=== PATIENT | male | born 2000 | race Caucasian/White ===

== ENCOUNTER 2022-02-08 10:53 | Emergency (ER) | payer OTHER, SELFPAY ==
[2022-02-08 11:06] VITALS: BP 106/50; PULSE 72; RESP 16; TEMP 37.1; O2SAT 98
--- NOTE | 2022-02-08 11:27 | ED.GENADULT ---
HPI - General Adult General Chief complaint: Unspecified Stated complaint: Cough nausea Time Seen by Provider: 02/08/22 11:10 Source: patient Mode of arrival: ambulatory Limitations: no limitations History of Present Illness HPI narrative: Klever is a 21-year-old male patient presenting to the clinic today with complaints of body aches, nausea, and headache that occurred 3 days ago. He reports he woke up this morning and he is feeling very well. He is needing a note for work to return Related Data Home Medications Medication Instructions Recorded Confirmed dexmethylphenidate 30 mg 30 mg PO DAILY 05/12/19 02/08/22 capsule,extended release [id number] (Focalin XR) methylphenidate HCl 5 mg tablet 5 mg PO DAILY 05/12/19 02/08/22 (Ritalin) Allergies Allergy/AdvReac Type Severity Reaction Status Date / Time No Known Allergies Allergy Unknown Verified 02/08/22 11:18 Review of Systems Review of Systems: Pertinent positives per HPI. Patient denies any fever, chills, rash, headache, visual changes, dizziness, cough, runny nose, sore throat, shortness of breath, chest pain, palpitations, nausea, vomiting, diarrhea, constipation, abdominal pain, or any urinary issues. PMFSH Comments At the time of my signature, I reviewed and agree with the nursing past medical, surgical, social, and family history. There is no relevant family history pertinent to the patient complaint. Exam Narrative: General: Well-developed, well nourished, in no apparent distress Head: Normocephalic, atraumatic Eyes: Pupils equally round and reactive to light bilaterally, EOM intact, sclera and conjunctive clear, no discharge, lids normal Ears: TMs intact and clear, ear canals clear, no drainage, grossly hearing normal. Nose: Nares patent, no discharge, no inflammation, no sinus tenderness. Mouth: Oropharynx without lesions or masses, good dentition, MMM. Oropharynx red with tonsillar swelling Neck: Supple, trachea midline, no enlargement of anterior or posterior cervical nodes, no thyroid masses or goiter palpable. Cardio: Regular rate and rhythm, s1 and s2 normal, no murmur appreciated. Resp: Clear to auscultation bilaterally anteriorly and posteriorly, no rhonchi, rales, wheezing or rubs Course Course Emergency Course: Portions of this record may have been created with voice recognition software. Level of Care: Express Care Visit Vital Signs Vital signs: Vital Signs Temperature 37.1 C 02/08/22 11:06 Pulse Rate 72 02/08/22 11:06 Respiratory Rate 16 02/08/22 11:06 Blood Pressure 106/50 L 02/08/22 11:06 Pulse Oximetry 98 02/08/22 11:06 Oxygen Delivery Room Air 02/08/22 11:06 Temperature 37.1 C 02/08/22 11:06 Pulse Rate 72 02/08/22 11:06 Respiratory Rate 16 02/08/22 11:06 Blood Pressure 106/50 L 02/08/22 11:06 Pulse Oximetry 98 02/08/22 11:06 Oxygen Delivery Room Air 02/08/22 11:06 Vital signs reviewed Medical Decision Making MDM Narrative Medical decision making narrative: At the time of visit patient is resting comfortably on the exam table. Strep screen was obtained was negative. Supportive measures were discussed with the patient he voiced understanding of discharge instructions and agrees to treatment plan. Differential Diagnosis Differential Diagnosis: Viral syndrome, pharyngitis, COVID, influenza Vital Signs Vital Signs: Vital Signs Temperature 37.1 C 02/08/22 11:06 Pulse Rate 72 02/08/22 11:06 Respiratory Rate 16 02/08/22 11:06 Blood Pressure 106/50 L 02/08/22 11:06 Pulse Oximetry 98 02/08/22 11:06 Oxygen Delivery Room Air 02/08/22 11:06 Temperature 37.1 C 02/08/22 11:06 Pulse Rate 72 02/08/22 11:06 Respiratory Rate 16 02/08/22 11:06 Blood Pressure 106/50 L 02/08/22 11:06 Pulse Oximetry 98 02/08/22 11:06 Oxygen Delivery Room Air 02/08/22 11:06 Lab Data Labs: Strep Screen Presumptive Negative
== END 2022-02-08 11:48 | disposition home or self-care (01) ==
PROVIDERS: Emergency Provider Nurse Practitioner Family
DX: B34.9 Viral infection, unspecified (principal); F90.9 Attention-deficit hyperactivity disorder, unspecified type
CPT/HCPCS: 87081; 87880; 99213; G0463

== ENCOUNTER 2025-03-20 14:34 | Emergency (ER) | payer OTHER, SELFPAY ==
[2025-03-20 14:45] VITALS: BP 121/67; PULSE 77; RESP 20; TEMP 36.8; O2SAT 100
[2025-03-20 15:04] LABS: EDSTREPNEGPOS1 Negative (Negative)
[2025-03-20 15:08] LABS: EDCOVIDSCREEN Negative (Negative); EDINFLUASCREEN Negative (Negative); EDINFLUBSCREEN Negative (Negative)
--- OUTSIDE RECORDS SUMMARY | 2025-03-20 15:57 | XMS_ITS | Clinical Summary ---
Author Organization [facility] Address [address] [place] [address] Phone Care Team Providers Care Truck Driver Flatbed Name Role Phone Doroteo Flynn MD Primary Care Provider [phone] Allergies No known active allergies Medications Dexmethylphenida te HCl 30 MG CAPSULE SR 24 HR TK ONE C PO QAM 0 07/26/2018 Active guanFACINE (TENEX) 1 MG Tablet 2 07/26/2018 Active ondansetron (ZOFRAN-ODT) 4 MG TABLET DISPERSIBLE Take 1 Tablet by mouth every 6 hours as needed for Nausea - 1st line. 6 Tablet 07/22/2020 Active Active Problems No known active problems Social History Tobacco Use Types Packs/Day Years Used Date Smoking Tobacco: Never Smokeless Tobacco: Never Alcohol Use Standard Drinks/Week Comments Never 0 (1 standard drink = 0.6 oz pur e alcohol) AUDIT-C Answer Date Recorded Frequency of Alcohol Consumption Never 08/11/2018 Average Number of Drinks Not on file 019 Frequency of Binge Drinking Not on file 07/19 Sex and Gender Information Value Date Recorded Sex Assigned at Not on file Legal Sex Male 10:39 PM CDT Gender Identity Not on file Sexual Orientation Not on file Last Filed Vital Signs Vital Sign Reading Time Taken Comments Blood Pressure 98/58 01/22/2021 7:22 PM CDT Pulse 70 01/22/2021 7:22 PM CDT Temperature 36.5 C (97.7 F) 01/22/2021 7:22 PM CDT Respiratory Rate 18 01/22/2021 7:22 PM CDT Oxygen Saturation 97% 01/22/2021 7:22 PM CDT Inhaled Oxygen Concentration - - Weight 54.4 kg (120 lb) 01/22/2021 5:48 PM CDT Height 167.6 cm (5' 6) 01/22/2021 5:48 PM CDT Body Mass Index 19.37 01/22/2021 5:48 PM CDT Plan of Treatment Health Maintenance Due Date Last Done Comments Hepatitis C Virus (HCV) Screening 2001 Human Papillomavirus (HPV) Immunization (3 - Male 2-dose series) 03/04/2014 11/24/2013, 09/01/2013 Meningococcal B Immunization (1 of 2 - Standard) 2017 Influenza Immunization (#1) 2024 03/08/2002, 1 2001 SARS-COV-2 Immunization (3 - season) 2024 12/27/2020, 11/22/2020 Respiratory Syncytial Virus (RSV) Immunization (Adult) (1 - 1-dose 75+ series) 2076 Hepatitis B Immunization Completed 002, 2001, 2001 Pneumococcal Immunization Combined Aged Out 08/31/2002, 03/08/2002, 2001 No longer eligible based on patient's age to complete this topic Measles Mumps Rubella (MMR) Immunization Discontinued 07/15/2006, 08/31/2002 Polio (IPV) Immunization Discontinued 007, 12/20/2002, 2001, Additional history exists Varicella Immunization Completed 07/15/2006, 2002 DTaP/Tdap/Td Immunization Discontinued 2013, 12/20/2002, 2001, Additional history exists Hepatitis A Immunization Discontinued 09/01/2013 TdaP Immunization Completed 09/01/2013 Meningococcal Immunization (ACWY) Completed 01/30/2020, 09/01/2013 Rotavirus Immunization Aged Out No lo nger eligible based on patient's age to complete this topic Insurance MEDICAID [facility] [facility] Care Teams Truck Driver Flatbed Relationship Specialty Start Date End Date Doroteo Flynn MD [address] [place] [address] PCP - General Pediatrics 08/11/18
--- OUTSIDE RECORDS SUMMARY | 2025-03-20 15:57 | XMS_ITS | Clinical Summary ---
Author Organization [facility] Address [address] [place] [address] Phone Care Team Providers Care Windows Security Engineer Name Role Phone Trey Juan MD Primary Care Provider [phone] Allergies No known active allergies Medications benzonatate (TESSALON) 200 mg capsuleIndicat ions:Viral URI with cough Take 1 capsule (200 mg total) by mouth 3 (three) times a day as needed for cough 42 capsule 3 Active Additional Information Patient not taking.Reported on 04/26/2023 albuterol HFA (PROVENTIL HFA,VENTOLIN HFA,PROAIR HFA) 90 mcg/actuation inhalerIndicat ions:Viral URI with cough Inhale 2 puffs every 6 (six) hours as needed for wheezing 1 each 3 Active sertraline (ZOLOFT) 50 mg tablet Take 1 tablet (50 mg total) by mouth daily 90 tablet 1 3 Active naproxen (NAPROSYN) 500 mg tablet Take 1 tablet (500 mg total) by mouth 2 (two) times a day with meals P.r.n. pain and swelling. Collaborating physician Levi Caba MD 30 tablet 3 Active Active Problems Problem Noted Date Diagnosed Date Unable to control anger 04/26/2023 Assessment & Plan (04/26/2023 8:20 AM WELDER MANUFACTURE): Improved while taking sertraline. Encouraged compliance. He is agreeable. Also discussed meeting with our therapist which she is also agreeable. We reviewed red flags. Follow-up in 6 months or sooner for any concerns. Closed displaced fracture of fifth metacarpal bone of right hand 08/13/2022 Gastroenteritis 11/30/2019 Sprain, ribs, initial encounter 02/13/2019 Thoracic myofascial strain 02/13/2019 Irritant contact dermatitis due to plants, excep t food 09/29/2018 Testicular pain, right 04/07/2018 Encounter for routine child health examination without abnormal findings 05/31/2017 Attention deficit hyperactiv ity disorder (ADHD), combined type 11/25/2016 Overview (08/11/2018): Focalin XR 30mg am. 03-10-17 New agreement signed & UDS shows COMPLIANCE. Pt has [place] ins (switching to [place] not effective until 07-18-17) - per Dr. Hayden may continue to fill Focalin until f/u appt 07/26/18. 07/26/18 UDS #2 shows COMPLIANCE Assessment & Plan (04/26/2023 8:20 AM WELDER MANUFACTURE): Reports stable currently. Will continue to monitor. Singers' nodes 11/26/2010 Hoarseness 08/04/2010 Encounters Date Type Department Care Team Description 03/20/2025 Nurse Triage [facility] [address] [place] [address] Trey Juan MD from Last 3 Months Immunizations Immunization Administration Dates Next Due DTaP 07/15/2006, 3,2001,10/03,2001 HPV, Quadrivalent 11/24/2013,09/01/2013 Hep A, Pediatric 09/01/2013 Hep B, Adolescent or Pediatric 03/08/2002,2001,2001 Hib (HbOC) 08/31/2002, 2,2001,08/03 IPV 07/15/2006, 3,2001,10/03,2001 Influenza, Quadrivalent, Spl it, Intramuscular 03/08/2002 Influenza, Unspecified 04/26/2023(Deferr ed: Patient Refused),06/09/2022(Deferred: Patient Refused),12/18/2021(Deferred: Patient Refused) MMR 07/15/2006,08/31/2002 Meningococcal Conjugate (Menveo) 01/30/2020 Meningococcal MCV4P (Menactra) 09/01/2013 Pneumococcal Conjugate 7-Valent 09/01/19 03,06/08/2002,03/08/2002,12/06 Tdap 09/01/2013 Varicella 07/15/2006,12/20/2002 Surgical History Surgery Date Site/Laterality Comments STRABISMUS SURGERY Right Medical History Medical History Date Comments Vocal cord nodule Vocal cord nod ules - (Added by TW Conv) Adhd Adhd ADHD (attention deficit hype ractivity disorder) Anxiety Depression Gastric reflux Family History Medical History Relation Name Comments No Known Problems Brother Alcohol abuse Father Squamous cell carcinoma Maternal Grandfather Diabetes Maternal Grandmother Diabetes Mother Hypertension Mother No Known Problems Sister Relation Name Status Comments Brother Alive Father Alive Maternal Grandfather Alive Maternal Grandmother Alive Mother Alive Sister Alive Social History Tobacco Use Types Packs/Day Years Used Date Smoking Tobacco: Some Days Cigarettes Smokeless Tobacco: Never Tobacco Cessation:Ready to Q uit: Not Asked; Counseling Given: Not Answered Alcohol Use Standard Drinks/Week Comments Not Currently 0 (1 standard drink = 0.6 oz pur e alcohol) AUDIT-C Answer Date Recorded Q1: How often do you have a drink containing alc ohol? 2-3 times a week 04/26/2023 Q2: How many drinks containi ng alcohol do you have on a typical day when you are drinking? 5 or 6 04/26/2023 Q3: How often do you have si x or more drinks on one occasion? Monthly 04/26/2023 PHQ-2 Answer Date Recorded PHQ-2 Total Score (If total score is 3 or more points, staff should administer the PHQ-9) 1 06/09/2022 Personal Safety Answer Date Recorded Have you ever been in or are you currently in a harmful physical or emotional relationship or is someone making you feel afraid or unsafe? Denies 08/13/2022 Sex and Gender Information Value Date Recorded Sex Assigned at Not on file Legal Sex Male 12:33 PM WELDER MANUFACTURE Gender Identity Not on file Sexual Orientation Not on file Last Filed Vital Signs Vital Sign Reading Time Taken Comments Blood Pressure 100/54 04/26/2023 7:48 AM WELDER MANUFACTURE Pulse 70 04/26/2023 7:48 AM WELDER MANUFACTURE Temperature 36.4 C (97.6 F) 04/26/2023 7:48 AM WELDER MANUFACTURE Respiratory Rate 18 04/26/2023 7:48 AM WELDER MANUFACTURE Oxygen Saturation 98% 04/26/2023 7:48 AM WELDER MANUFACTURE Inhaled Oxygen Concentration - - Weight 57.2 kg (126 lb 3.2 oz) 04/26/2023 7:48 A M WELDER MANUFACTURE Height 170.2 cm (5' 7.01) 04/26/2023 7:48 AM CS T Body Mass Index 19.76 04/26/2023 7:48 AM WELDER MANUFACTURE Plan of Treatment Health Maintenance Due Date Last Done Comments Hepatitis C Screening 2001 Pneumococcal vaccine <65 (1 of 1 - PPSV23, PCV20, or PCV21) 2007 08/31/2002, 06/08/2002, 03/08/2002, Additional history exists HPV Vaccines (3 - Male 2-dos e series) 03/04/2014 11/24/2013, 09/01/2013 Meningococcal B Vaccine (1 o f 2 - Standard) 2017 Regular Well Visit/Exam 18-64 2019 Depression Screening 06/09/2023 06/09/2022 DTaP/Tdap/Td Vaccine (7 - Td or Tdap) 09/02/2023 09/01/2013, 07/15/2006, 12/20/2002, Additional history exists Influenza Vaccine (#1) 2024 03/08/2002 Hepatitis B Screening Completed 03/08/2002 , 2001, 2001 Varicella Vaccines Completed 07/15/2006, 12/20/[address] [place] [address] [facility] Care Teams Windows Security Engineer Relationship Specialty Start Date End Date Trey Juan MD [address] [place] [address] PCP - General Family Medicine 06/09/22
--- OUTSIDE RECORDS SUMMARY | 2025-03-20 15:57 | XMS_ITS | Encounter Summary ---
Author Organization [facility] Address [address] [place] [address] Phone Care Team Providers Care Salesperson Stereo Equipment Name Role Phone Doroteo Flynn MD Primary Care Provider [phone] Trey Juan MD Primary Care Provider [phone] Encounter Details Date Type Department Care Team (Late st Contact Info) Description 03/09/2017 Orders Only [facility] [address] [place] [address] Angela Sykes, ANTELMO [address] [address] [place] [address] Attention deficit hyperactivity disorder (ADHD), combined type (Primary Dx); Encounter for long-term (current) use of medications Social History Tobacco Use Types Packs/Day Years Used Date Smoking Tobacco: Never Assessed Sex and Gender Information Value Date Recorded Sex Assigned at Not on file Legal Sex Male 12:33 PM HOMELAND SECURITY PROGRAM SPECIALIST Gender Identity Not on file Sexual Orientation Not on file documented as of this encounter Functional Status documented as of this encounter Plan of Treatment Not on file documented as of this encounter Procedures Procedure Name Priority Date/Time Associated Diagnosis Comments DRUG MONITORING, PANEL 5, WITH CONFIRMATION, URINE Routine 03/10/2017 9:56 AM HOMELAND SECURITY PROGRAM SPECIALIST Attention deficit hyperactivity disorder (ADHD), combined type Encounter for long-term (current) use of medications PAIN MANAGEMENT, METHYLPHENIDATE METAB, QN, URINE Routine 03/10/2017 9:56 AM HOMELAND SECURITY PROGRAM SPECIALIST Attention deficit hyperactivity disorder (ADHD), combined type Encounter for long-term (current) use of medications documented in this encounter Results * (ABNORMAL) Pain Management, Methylphenidate Metabolite, Quantitative, Urine (03/10/2017 9:56 AM HOMELAND SECURITY PROGRAM SPECIALIST) Ritalinic Acid 17,406(H) <100 ng/mL [facility] Comment [facility] Comment: This drug testing is for medical treatment only. Analysis was performed as non-forensic testing and these results should be used only by healthcare providers to render diagnosis or treatment, or to monitor progress of medical conditions. For assistance with interpreting these drug results, please contact a [employer] Toxicology Specialist: [phone] ( ), M-F, 8am-6pm EST. Urine 03/10/2017 9:56 AM HOMELAND SECURITY PROGRAM SPECIALIST 03/10/2017 9:56 AM HOMELAND SECURITY PROGRAM SPECIALIST Narrative Resulting Agency Comment Performing Organization Information: Site ID: [facility] Name: [facility] Address: [address] [place] [address], [address] [place] [address] Director: Michelle Vasquez Ph.D. us Angela Sykes NP LAB URINE ORDERABLES Final Result [facility] * Pain Management, Profile 5 w/ Confirmation, w/o medMATCH, Urine (03/10/2017 9:56 AM HOMELAND SECURITY PROGRAM SPECIALIST) Creatinine 195.9 > or = 20.0 mg/dL [facility] Specific [place] CANCELED > or = 1.003 [facility] Comment:Result canceled by t vale ancillary pH, ur 6.62 4.5 - 9.0 [facility] Oxidant NEGATIVE <200 mcg/mL [facility] Abnormal specimen validity CANCELED [facility] Comment:Result canceled by t he ancillary Amphetamine, ur, quant NEGATIVE <500 ng/mL [facility] Amphetamine, ur, quant CANCELED <250 ng/mL [facility] Comment:Result canceled by t he ancillary Methamphetamine CANCELED <250 ng/mL [facility] Comment:Result canceled by t he ancillary Barbiturates, ur NEGATIVE <300 ng/mL [facility] Amobarbital, ur CANCELED <100 ng/mL [facility] Comment:Result canceled by t he ancillary Butalbital CANCELED <100 ng/mL [facility] Comment:Result canceled by t he ancillary Pentobarbital CANCELED <100 ng/mL [facility] Comment:Result canceled by t he ancillary Phenobarbital CANCELED <100 ng/mL [facility] Comment:Result canceled by t he ancillary Secobarbital CANCELED <100 ng/mL [facility] Comment:Result canceled by t he ancillary Benzodiazepines NEGATIVE <100 ng/mL [facility] Alphahydroxyalprazolam CANCELED <25 ng/mL [facility] Comment:Result canceled by t he ancillary Alphahydroxymidazolam CANCELED <50 ng/mL [facility] Comment:Result canceled by t he ancillary Alphahydroxytriazolam CANCELED <50 ng/mL [facility] Comment:Result canceled by t he ancillary Aminoclonazepam CANCELED <25 ng/mL [facility] Comment:Result canceled by t he ancillary Hydroxyethylflurazepam CANCELED <50 ng/mL [facility] Comment:Result canceled by t he ancillary Lorazepam CANCELED <50 ng/mL [facility] Comment:Result canceled by t he ancillary Nordiazepam, ur CANCELED <50 ng/mL [facility] Comment:Result canceled by t he ancillary Oxazepam CANCELED <50 ng/mL [facility] Comment:Result canceled by t he ancillary Temazepam CANCELED <50 ng/mL [facility] Comment:Result canceled by t he ancillary Marijuana Metabolite NEGATIVE <20 ng/mL [facility] Marijuana Metabolite CANCELED <5 ng/mL [facility] Comment:Result canceled by t he ancillary Cocaine metabolite NEGATIVE <150 ng/mL [facility] Benzoylecgonine CANCELED <100 ng/mL [facility] Comment:Result canceled by t he ancillary Methadone Metabolite NEGATIVE <100 ng/mL [facility] EDDP CANCELED <100 ng/mL [facility] Comment:Result canceled by t he ancillary Methadone CANCELED <100 ng/mL [facility] Comment:Result canceled by t he ancillary Opiates NEGATIVE <100 ng/mL [facility] Codeine CANCELED <50 ng/mL [facility] Comment:Result canceled by t he ancillary Hydrocodone CANCELED <50 ng/mL [facility] Comment:Result canceled by t he ancillary Hydromorphone CANCELED <50 ng/mL [facility] Comment:Result canceled by t he ancillary Morphine CANCELED <50 ng/mL [facility] Comment:Result canceled by t he ancillary Norhydrocodone CANCELED <50 ng/mL [facility] Comment:Result canceled by t he ancillary Oxycodone NEGATIVE <100 ng/mL [facility] Noroxycodone CANCELED <50 ng/mL [facility] Comment:Result canceled by t he ancillary Oxycodone CANCELED <50 ng/mL [facility] Comment:Result canceled by t he ancillary Oxymorphone CANCELED <50 ng/mL [facility] Comment:Result canceled by t he ancillary Comment [facility] Comment: This drug testing is for medical treatment only. Analysis was performed as non-forensic testing and these results should be used only by healthcare providers to render diagnosis or treatment, or to monitor progress of medical conditions. For assistance with interpreting these drug results, please contact a [employer] Toxicology Specialist: [phone] ( ), M-F, 8am-6pm EST. Urine 03/10/2017 9:56 AM HOMELAND SECURITY PROGRAM SPECIALIST 03/10/2017 9:56 AM HOMELAND SECURITY PROGRAM SPECIALIST Narrative Resulting Agency Comment Performing Organization Information: Site ID: [facility] Name: [facility] Address: [address] [place] [address], [address] [place] [address] Director: Michelle Vasquez Ph.D. Angela Sykes NP LAB URINE ORDERABLES Final Result [facility] documented in this encounter Visit Diagnoses Diagnosis Attention deficit hyperactivity disorder (ADHD), combined type- Primary Encounter for long-term (current) use of medications Encounter for long-term (current) use of other medications documented in this encounter Additional Health Concerns Infection Onset Date Last Indicated Resolved Time COVID: Suspected 06/02/2022 06/02/2022 06/02/2022 3:47 PM HOMELAND SECURITY PROGRAM SPECIALIST documented as of this encounter Care Teams Salesperson Stereo Equipment Relationship Specialty Start Date End Date Doroteo Flynn MD [address] [place] [address] PCP - General 07/17/16 06/08/22 Trey Juan MD [address] [place] [address] PCP - General Family Medicine 06/09/22 documented as of this encounter
--- OUTSIDE RECORDS SUMMARY | 2025-03-20 15:57 | XMS_ITS | Encounter Summary ---
Author Organization [facility] Healthcare Address [address] [place] [id number] Care Team Providers Care Brush Cutter Name Role Phone Trey Juan MD Primary Care Provider [phone] Reason for Visit * Reason Onset Date Comments Chest Pain 03/20/2025 Shortness of Breath 03/20/2025 Sore Throat 03/20/2025 Congestion 03/20/2025 Encounter Details Date Type Department Care Team (Late st Contact Info) Description 03/20/2025 Nurse Triage [facility] [address] [place] [address] Trey Juan MD [address] [facility] [place] [address] Social History Tobacco Use Types Packs/Day Years Used Date Smoking Tobacco: Some Days Cigarettes Smokeless Tobacco: Never Alcohol Use Standard Drinks/Week Comments Not Currently [...] on file Legal Sex Male 12:33 PM RESEARCH DEVELOPMENT DIRECTOR Gender Identity Not on file Sexual Orientation Not on file documented as of this encounter Miscellaneous Notes * Telephone Encounter - Freda Rosales NP - 03/20/2025 3:08 PM RESEARCH DEVELOPMENT DIRECTOR Agree with ED disposition. ARCH DEVELOPMENT DIRECTOR * Telephone Encounter - Emily Maurice MA - 03/20/2025 3:03 PM CST FYI , pt was advised to go to ER ARCH DEVELOPMENT DIRECTOR * Telephone Encounter - Olena Benitez RN - 03/20/2025 1:19 PM RESEARCH DEVELOPMENT DIRECTOR Reason for Conversation Chest Pain, Shortness of Breath, Sore Throat, and Congestion Background Klever A Wagner reports symptoms x2 days including sore throat pain, lost of mucus congestion, cough productive of yellow sputum, hot & cold flashes, occ sweating, shaking chills, intermittent/chest tightness that sometimes feels painful and the heaviness feels like somebody is sitting on top of me; feeling very winded walking around or talking. I've never felt like this ever. STANLEY Sp02 or temp. Denies hx of heart or lung disease. Denies nausea/vomiting/dizziness. Care advice and emotional support given. Patient instructed to call back if symptoms worsen or withany questions and verbalized understanding. Advised patient per protocol to go to ED now and he verbalized understanding, stating he will do so. Routing FYI to office. Disposition Go to ED Now Reason for Disposition Difficulty breathing Protocols Used Chest [id number] ARCH DEVELOPMENT DIRECTOR * Telephone Encounter - Olena Benitez RN - 03/20/2025 1:17 PM RESEARCH DEVELOPMENT DIRECTOR Regarding: Chest pain, SHOB and nose clogged ----- Message from Bharti Adams sent at 03/20/2025 1:14 PM RESEARCH DEVELOPMENT DIRECTOR ----- Symptom Based Call Chief Complaint(s): Chest pain, SHOB and nose clogged Duration: 2 days What type of symptom(s) is the patient experiencing? Red Flag. Is the patient concerned they are experiencing a medical emergency requiring an ambulance? No Additional Comments: Pt called wanting to get information on a walk in clinic to be seen today withabove red flag symptoms. Does message need to be routed? Yes-Action Needed ARCH DEVELOPMENT DIRECTOR documented in this encounter Plan of Treatment Not on file documented as of this encounter Visit Diagnoses Not on filedocumented in this encounter Care Teams Brush Cutter Relationship Specialty Start Date [place] [address] PCP - General Family Medicine 06/09/22 documented as of this encounter
--- NOTE | 2025-03-20 16:06 | ED.GENADULT ---
HPI - General Adult General Chief complaint: Upper Respiratory Infection Stated complaint: Chest Congestion/Cough/Sore Throat Source: patient and family Mode of arrival: ambulatory Limitations: no limitations History of Present Illness HPI narrative: Patient presents for evaluation of sick symptoms since . Symptoms include sore throat, body aches, sinus congestion, mucopurulent discharge from the nares, productive cough of yellow/ green sputum and diarrhea. Denies any SOB. No recent sick contacts to his knowledge. He vapes and also uses marijuana. Related Data Allergies Allergy/AdvReac Type Severity Reaction Status Date / Time No Known Allergies Allergy Unknown Verified 03/20/25 14:55 Review of Systems Review of Systems: CONSTITUTIONAL: Denies fever, chills, or sweats. EYES: Denies visual changes, redness, or discharge. ENT: reports sinus congestion, mucopurulent discharge from the nares, and sore throat CARDIOVASCULAR: Denies chest pain, palpitations, or edema. RESPIRATORY: reports productive cough of yellow/ green sputum GASTROINTESTINAL: reports diarrhea. Denies abdominal pain, nausea, vomiting GENITOURINARY: Denies dysuria or hematuria. SKIN: Denies rash or itching. MUSCULOSKELETAL: reports generalized body NEUROLOGIC: Denies headache, numbness, dizziness, or weakness. PSYCHIATRIC: Denies anxiety or depression. [facility] Past Medical History Medical History ADD (attention deficit disorder) Diarrhea Surgical History Surgical History No pertinent past surgical history Family History Family History Mother Family history non-contributory Social History Social History Smoking status: Current every day smoker Tobacco type: e-cigarettes/vaping Substance use: current Substance use type: marijuana Living arrangements: with family Gender identity (if verbalized by the patient): Male Spiritual care concerns: No Exam Narrative: GENERAL: Well-appearing, well-nourished, and in no acute distress. HEAD: Normocephalic, atraumatic. EYES: PERRLA and EOMI. ENT: Nares clear, no rhinorrhea or epistaxis. Mucous membranes moist. Oropharynx without tonsillar hypertrophy exudate or other lesions. Bilateral TMs pearly christina nonbulging NECK: Supple. No adenopathy or masses. No carotid bruits or JVD CHEST: Clear to auscultation. No respiratory distress. No wheezes rales or rhonchi HEART: Regular rate and rhythm. No murmur heard. Normal peripheral pulses. ABDOMEN: Soft, nontender, nondistended, normal active bowel sounds. EXTREMITIES: Normal range of motion. No edema. SKIN: Warm, dry, no rash. NEURO: No focal deficits. Alert and oriented x3. PSYCH: Normal mood and affect. Course Course Emergency Course: This is a 24-year-old male who presented for evaluation of sick symptoms. COVID, influenza, strep were all negative. He meets criteria for bacterial sinusitis based upon mucopurulent nature of discharge and duration of time in which he has been symptomatic. Will dc with augmentin. Increase fluid intake. OTC agents for symptom management. Follow up with primary provider. Go to the ER for worsening symptoms. Pt in agreement with plan of care. Level of Care: Express Care Visit Vital Signs Vital signs: Vital Signs Temperature 36.8 C 03/20/25 14:45 Pulse Rate 77 03/20/25 14:45 Respiratory Rate 20 03/20/25 14:45 Blood Pressure 121/67 03/20/25 14:45 Pulse Oximetry 100 03/20/25 14:45 Oxygen Delivery Room Air 03/20/25 14:45 Temperature 36.8 C 03/20/25 14:45 Pulse Rate 77 03/20/25 14:45 Respiratory Rate 20 03/20/25 14:45 Blood Pressure 121/67 03/20/25 14:45 Pulse Oximetry 100 03/20/25 14:45 Oxygen Delivery Room Air 03/20/25 14:45 MDM Differential Diagnosis Differential Diagnosis: Flu versus COVID verses strep versus other acute viral syndrome versus other Lab Data Labs: Lab Results 03/20/25 03/20/25 Range/Units 15:01 15:05 POC Influenza A Ag Negative (Negative) POC Influenza B Ag Negative (Negative) POC SARS CoV-2 Ag Negative (Negative) POC Grp A Strep Screen Negative (Negative) Discharge Plan Discharge Clinical Impression: Sinusitis, Diarrhea Patient Disposition: Home Condition: Stable Instructions: Antibiotic Form, Sinusitis (ED), Acute Diarrhea (ED) Patient Language: Amharic Prescriptions: New amoxicillin-pot clavulanate 875-125 mg tablet 1 tablet PO Q12H Qty: 20 0RF diphenoxylate-atropine [Lomotil] 2.5-0.025 mg tablet 1 tablet PO TID PRN (Reason: diarrhea) Qty: 15 0RF Follow-up/Referrals: Dwayne Hernandes MD [Physician, Family Practice] Time of Disposition: 16:04
== END 2025-03-20 16:08 | disposition home or self-care (01) ==
PROVIDERS: Emergency Provider Nurse Practitioner
DX: J32.9 Chronic sinusitis, unspecified (principal); R19.7 Diarrhea, unspecified; Z20.822 Contact with and (suspected) exposure to COVID-19; F17.290 Nicotine dependence, other tobacco product, uncomplicated; F12.90 Cannabis use, unspecified, uncomplicated
CPT/HCPCS: 87081; 87426; 87804; 87880; 99213; G0463